=== PATIENT | female | born 1955 | race Caucasian/White ===

== ENCOUNTER → 2017-01-03 | Outpatient (CLI) | payer OTHER ==
[~2017-01-03] VITALS: Ht 157.5 cm; Wt 106.6 kg
[~2017-01-03] MED LIST: FLAX100012 PO; HYDR12.55 PO; LISI30TA4 PO; LR 1,000 ML IV SCH; PRESCAP4 PO; PREV30CA11 PO; PROPOFOL 200 MG/20 ML VIAL As Ordered ONE; VITA400C29 PO
--- NOTE | 2017-01-03 13:13 | ROOR ---
Patient Name: Nguyen Pruett Procedure Date: 01/03/2017 12:55 PM Date of : 1955 Age: 61 Room: [facility] Gender: Female Note Status: Finalized Procedure: Upper GI endoscopy Indications: Abdominal pain in the right upper quadrant, Suspected esophageal reflux Providers: Giovani Rodriguez Jr, MD Referring MD: MARTHA MCDUFFIE NP Requesting Provider: Medicines: Propofol per Anesthesia Complications: No immediate complications. Procedure: Pre-Anesthesia Assessment: - Prior to the procedure, a History and Physical was performed, and patient medications and allergies were reviewed. The patient is competent. The risks and benefits of the procedure and the sedation options and risks were discussed with the patient. All questions were answered and informed consent was obtained. Patient identification and proposed procedure were verified by the physician and the nurse in the pre-procedure area and in the procedure room. Mental Status Examination: alert and oriented. Airway Examination: normal oropharyngeal airway and neck mobility. Respiratory Examination: clear to auscultation. CV Examination: normal. ASA Grade Assessment: II - A patient with mild systemic disease. After reviewing the risks and benefits, the patient was deemed in satisfactory condition to undergo the procedure. The anesthesia plan was to use moderate sedation / analgesia (conscious sedation). Immediately prior to administration of medications, the patient was re-assessed for adequacy to receive sedatives. The heart rate, respiratory rate, oxygen saturations, blood pressure, adequacy of pulmonary ventilation, and response to care were monitored throughout the procedure. The physical status of the patient was re-assessed after the procedure. The Endoscope was introduced through the mouth, and advanced to the second part of duodenum. The upper GI endoscopy was accomplished without difficulty. The patient tolerated the procedure well. Findings: The upper third of the esophagus, middle third of the esophagus and lower third of the esophagus were normal. A medium-sized hiatal hernia was present. The cardia, gastric fundus, gastric antrum, prepyloric region of the stomach and pylorus were normal. Multiple pedunculated polyps with no bleeding and no stigmata of recent bleeding were found on the greater curvature of the stomach. Biopsies were taken with a cold forceps for histology. The duodenal bulb, first portion of the duodenum and second portion of the duodenum were normal. Impression: - Normal upper third of esophagus, middle third of esophagus and lower third of esophagus. - Medium-sized hiatal hernia. - Normal cardia, gastric fundus, antrum, prepyloric region of the stomach and pylorus. - Multiple gastric polyps. Biopsied. - Normal duodenal bulb, first portion of the duodenum and second portion of the duodenum. Recommendation: - Discharge patient to home (ambulatory). - Return to my office in 2 weeks. Giovani Rodriguez MD Giovani Rodriguez Jr, MD 01/03/2017 1:12:28 PM This report has been signed electronically. Number of Addenda: 0 Note Initiated On: 01/03/2017 12:55 PM Estimated Blood Loss: Estimated blood loss: none.
--- NOTE | 2017-01-03 13:27 | ROOR ---
Patient Name: Nguyen Pruett Procedure Date: 01/03/2017 12:55 PM Date of : 1955 Age: 61 Room: [facility] Gender: Female Note Status: Finalized Procedure: Colonoscopy Indications: Abdominal pain in the right lower quadrant Providers: Giovani Rodriguez Jr, MD Referring MD: MARTHA MCDUFFIE NP Requesting Provider: Medicines: Propofol per Anesthesia Complications: No immediate complications. Procedure: Pre-Anesthesia Assessment: - Prior to the procedure, a History and Physical was performed, and patient medications and allergies were reviewed. The patient is competent. The risks and benefits of the procedure and the sedation options and risks were discussed with the patient. All questions were answered and informed consent was obtained. Patient identification and proposed procedure were verified by the physician and the nurse in the pre-procedure area and in the procedure room. Mental Status Examination: alert and oriented. Airway Examination: normal oropharyngeal airway and neck mobility. Respiratory Examination: clear to auscultation. CV Examination: normal. ASA Grade Assessment: II - A patient with mild systemic disease. After reviewing the risks and benefits, the patient was deemed in satisfactory condition to undergo the procedure. The anesthesia plan was to use moderate sedation / analgesia (conscious sedation). Immediately prior to administration of medications, the patient was re-assessed for adequacy to receive sedatives. The heart rate, respiratory rate, oxygen saturations, blood pressure, adequacy of pulmonary ventilation, and response to care were monitored throughout the procedure. The physical status of the patient was re-assessed after the procedure. The Colonoscope was introduced through the anus and advanced to the cecum, identified by appendiceal orifice and ileocecal valve. The colonoscopy was performed without difficulty. The patient tolerated the procedure well. The quality of the bowel preparation was adequate and good. Findings: The perianal exam findings include non-thrombosed internal hemorrhoids, internal hemorrhoids that prolapse with straining, but spontaneously regress to the resting position (Grade II) and internal hemorrhoids that prolapse with straining, but require manual replacement into the anal canal (Grade III). Multiple small and large-mouthed diverticula were found in the sigmoid colon. Scattered small-mouthed diverticula were found in the descending colon, transverse colon and ascending colon. The rectum, recto-sigmoid colon, ascending colon, cecum, appendiceal orifice and ileocecal valve appeared normal. Estimated blood loss: none. Impression: - Non-thrombosed internal hemorrhoids, internal hemorrhoids that prolapse with straining, but spontaneously regress to the resting position (Grade II) and internal hemorrhoids that prolapse with straining, but require manual replacement into the anal canal (Grade III) found on perianal exam. - Diverticulosis in the sigmoid colon. - Diverticulosis in the descending colon, in the transverse colon and in the ascending colon. - The rectum, recto-sigmoid colon, ascending colon, cecum, appendiceal orifice and ileocecal valve are normal. - No specimens collected. Recommendation: - Discharge patient to home (ambulatory). - Repeat colonoscopy in 10 years for screening purposes. Giovani Rodriguez MD Giovani Rodriguez Jr, MD 01/03/2017 1:27:35 PM This report has been signed electronically. Number of Addenda: 0 Note Initiated On: 01/03/2017 12:55 PM Estimated Blood Loss: Estimated blood loss: none.
[2017-01-03 13:56] VITALS: BP 136/66
== END | disposition home or self-care (01) ==
LOC: M OPP 11:32
PROVIDERS: ATTEND Surgery
DX: K64.1 Second degree hemorrhoids (principal); K64.2 Third degree hemorrhoids; K57.30 Diverticulosis of large intestine without perforation or abscess without bleeding; R10.11 Right upper quadrant pain; K44.9 Diaphragmatic hernia without obstruction or gangrene; K31.7 Polyp of stomach and duodenum; I10 Essential (primary) hypertension; M19.90 Unspecified osteoarthritis, unspecified site; Z79.899 Other long term (current) drug therapy; Z88.0 Allergy status to penicillin

== ENCOUNTER → 2019-04-22 | Outpatient (REF) | payer MEDICARE, OTHER ==
[~2019-04-22] MED LIST changes: +LISI-672 PO; -LISI30TA4 PO; -LR 1,000 ML IV SCH; +PREV1CAP PO; -PREV30CA11 PO; -PROPOFOL 200 MG/20 ML VIAL As Ordered ONE; +VITA-110 PO; -VITA400C29 PO
[2019-04-22 17:20] LABS: APPEARANCE, URINE HAZY (CLEAR); BACTERIA, URINE AUTO NEGATIVE (NEGATIVE); BILIRUBIN, URINE AUTO NEGATIVE (NEGATIVE); BLOOD, URINE BLOOD 1+ (NEGATIVE); COLOR, URINE YELLOW (YELLOW); GLUCOSE, URINE (UA) AUTO NEGATIVE (NEGATIVE); KETONE, URINE AUTO NEGATIVE (NEGATIVE); LEUKOCYTE ESTERASE, URINE AUTO 3+ (NEGATIVE); NITRITE, URINE AUTO NEGATIVE (NEGATIVE); PROTEIN, URINE AUTO NEGATIVE (NEGATIVE); RBC, URINE AUTO 17 /HPF (0-3); SPECIFIC GRAVITY URINE AUTO 1.014 (1.002-1.035); SQUAMOUS EPITHELIAL CELL UR AU 1 /HPF (0-6); UROBILINOGEN, URINE AUTO 0.2 mg/dL (0.0-2.0); WBC, URINE AUTO 26 /HPF (0-3)
== END ==
LOC: M LAB REF 15:08
PROVIDERS: ATTEND Physician Assistant
DX: N39.0 Urinary tract infection, site not specified (principal)

== ENCOUNTER 2021-04-12 10:13 | Emergency (ER) | payer MEDICARE, OTHER ==
[~2021-04-12 10:13] MED LIST changes: -LISI-672 PO; +LISI30TA4 PO
[2021-04-12] MEDS ORDERED: LISI30TA4 PO (10:24)
[2021-04-12] MEDS ORDERED: METF10004 PO (10:24)
--- NOTE | 2021-04-12 11:10 | REPVR ---
PROCEDURE INFORMATION: Exam: CT Head Without Contrast Exam date and time: 04/12/2021 10:51 AM Age: 66 years old Clinical indication: Injury or trauma; Fall; Blunt trauma (contusions or hematomas); Additional info: Fall injury TECHNIQUE: Imaging protocol: Computed tomography of the head without contrast. Radiation optimization: All CT scans at this facility use at least one of these dose optimization techniques: automated exposure control; mA and/or kV adjustment per patient size (includes targeted exams where dose is matched to clinical indication); or iterative reconstruction. COMPARISON: No relevant prior studies available. FINDINGS: Brain: No acute intracranial hemorrhage, cerebral edema, or midline shift. Cerebral ventricles: No hydrocephalus. Bones/joints: No acute fracture. Paranasal sinuses: There is no acute sinusitis. Mastoid air cells: Visualized mastoid air cells are well aerated. Orbital cavity: Unremarkable as visualized. Soft tissues: Mild left periorbital soft tissue swelling is present. IMPRESSION: No acute intracranial abnormality. Electronically signed by: Moiz Miles On 04/12/2021 11:10:15 AM
--- NOTE | 2021-04-12 11:13 | REPVR ---
PROCEDURE INFORMATION: Exam: CT Maxillofacial Without Contrast Exam date and time: 04/12/2021 10:51 AM Age: 66 years old Clinical indication: Injury or trauma; Fall; Blunt trauma (contusions or hematomas); Forehead; Additional info: Trauma, left periorbital TECHNIQUE: Imaging protocol: Computed tomography images of the face without contrast. Radiation optimization: All CT scans at this facility use at least one of these dose optimization techniques: automated exposure control; mA and/or kV adjustment per patient size (includes targeted exams where dose is matched to clinical indication); or iterative reconstruction. COMPARISON: No relevant prior studies available. FINDINGS: Orbital cavity: Orbits are normal. Globes are unremarkable. Bones/joints: No acute fracture. Paranasal sinuses: There is a 2.5 cm mucous retention cyst along the floor of the right maxillary sinus. There is no acute sinusitis. Soft tissues: Left periorbital soft tissue swelling is present. IMPRESSION: No acute fracture Electronically signed by: Moiz Miles On 04/12/2021 11:12:42 AM
[2021-04-12] MEDS ORDERED: BOOSTRIX/ADACEL VACCINE (DIPHTH/PERTUSS/ACELL/TETANUS) 0.5ML SYR IM ONE (11:35)
[2021-04-12] MEDS ORDERED: IBUPROFEN 800 MG TAB PO ONE (11:45)
[2021-04-12] MEDS ORDERED: LIDOCAINE W/EPINEPHRINE 1% 20ML VIAL SC ONE (11:50)
[2021-04-12] MEDS ORDERED: NEOSPORIN OINT 0.9 GM PKT TOP ONE (12:40)
[2021-04-12 12:49] VITALS: BP 144/69
== END 2021-04-12 12:58 | disposition home or self-care (01) ==
LOC: M ED 10:13
DX: S01.81XA Laceration without foreign body of other part of head, initial encounter (principal); W19.XXXA Unspecified fall, initial encounter; Y92.009 Unspecified place in unspecified non-institutional (private) residence as the place of occurrence of the external cause; Y93.89 Activity, other specified; Y99.8 Other external cause status

== ENCOUNTER → 2021-08-21 | Outpatient (CLI) | payer MEDICARE, OTHER ==
[~2021-08-21] MED LIST changes: +METF10004 PO
--- NOTE | 2021-08-21 16:04 | REP ---
INDICATION: LOW BACK PAIN. COMPARISON: 12/04/2016 TECHNIQUE: Five views FINDINGS: Since the last examination a grade 1 L4 upon L5 spondylolisthesis has developed. This is seen with new mild to moderate disc space narrowing at L4-5 and L5-S1. Vertebral body height is unchanged. Degenerative facet joint changes are again seen at every level bilaterally and again particularly L3-4 to L5-S1. IMPRESSION: Chronic changes as described above. <Electronically signed by Jordy Wright > 08/21/21 1600
== END ==
LOC: M WUC 14:19
PROVIDERS: ATTEND Registered Nurse
DX: M54.5 Low back pain (principal); M43.16 Spondylolisthesis, lumbar region; M51.37 Other intervertebral disc degeneration, lumbosacral region

== ENCOUNTER → 2021-09-07 | Outpatient (CLI) | payer MEDICARE, OTHER ==
--- NOTE | 2021-09-07 11:16 | REP ---
INDICATION: LT LOWER LEG LUMP CYST VS MASS. COMPARISON: None. TECHNIQUE: Real-time sonographic evaluation of a hard lump over the anterior medial weinberg of the left lower extremity with pain x4 years FINDINGS: No cystic or solid masses are identified over the area interrogated with ultrasound by the technologist. IMPRESSION: No focal sonographic abnormality. This does not obviate further imaging with pre and post gadolinium enhanced MRI. <Electronically signed by Jordy Wrgiht > 09/07/21 [id number]
== END ==
LOC: M RAD 10:26
PROVIDERS: ATTEND Registered Nurse
DX: R22.42 Localized swelling, mass and lump, left lower limb (principal); M79.662 Pain in left lower leg

== ENCOUNTER → 2021-09-21 | Outpatient (CLI) | payer MEDICARE, OTHER ==
[~2021-09-21] MED LIST changes: +PROHANCE 279.3MG/ML 5ML VIAL As Ordered ONE
--- NOTE | 2021-09-21 14:05 | REP ---
INDICATION: HARD LUMP ANTERIOR GONZALEZ. COMPARISON: None. TECHNIQUE: Pre and post contrast 3T MRI of the left lower leg was performed utilizing various sequences. Gadolinium utilized: 10 cc ProHance The technologist placed skin markers on the anterior medial soft tissues 1 proximal and the other distal to a clinically palpable mass. FINDINGS: There is no evidence of a mass or mass effect between the markers placed by the technologist. All adipose tissue suppresses normally on fat suppression sequences. There is no abnormal signal or enhancement seen between the markers placed by the technologist. There is no abnormal fluid in the intracompartmental or extra compartmental imaged soft tissues. The cortical marrow signal seen throughout the tibia and fibula is within normal limits. There is no abnormal periosteal thickening or signal. There is no abnormal periosteal enhancement. IMPRESSION: There is no abnormal identifiable mass or mass effect. There is no abnormal signal or enhancement as described above. MRI findings are within normal limits. <Electronically signed by Jordy Wright > 09/21/21 [id number]
== END ==
LOC: M RAD 11:06
PROVIDERS: ATTEND Registered Nurse
DX: R22.42 Localized swelling, mass and lump, left lower limb (principal)
CPT/HCPCS: 73720; A9576

== ENCOUNTER → 2021-09-22 | Outpatient (CLI) | payer MEDICARE, OTHER ==
[~2021-09-22] MED LIST changes: -PROHANCE 279.3MG/ML 5ML VIAL As Ordered ONE
--- NOTE | 2021-09-22 15:40 | REPMRS ---
Patient History The patient states she had a clinical breast exam in August 2021. No known family history of cancer. Took hormonal contraceptives for 5 years. Patient states no breast complaints today. Patient has signed MRS History Sheet. Digital Woman Screen Mammo: September 22, 2021 - Exam #: [id number] Bilateral CC and MLO view(s) were taken. Technologist: Devorah Catherine, Technologist Prior study comparison: November 13, 2018, bilateral digital mammo screening bilat, performed at [facility]. February 14, 2017, bilateral digital mammo screening bilat, performed at [facility]. November 01, 2015, digital woman screen mammo performed at [facility]. June 03, 2014, bilateral bilat screen digital mammo, performed at [facility] ([facility] FINDINGS: There are scattered fibroglandular densities. Screening. Digital screening (2D) mammography was performed bilaterally in the CC and MLO projections. Additionally, breast tomosynthesis (3D mammography) was performed bilaterally in the CC and MLO projections. Todays exam was compared to the prior exam/exams. By history, the patient has no complaints of a palpable breast abnormality or other significant breast complaints. The breasts are unchanged in size and shape. There are no juwan-soft tissue densities or spiculated masses. There is no internal architectural distortion. There are no suspicious juwan-calcific clusters. Skin thickening or nipple retraction is not present. IMPRESSION: BI-RADS Category 2- Benign Findings. There is no evidence of malignant alteration of the breasts. Followup examination recommended in one year. The Volpara volumetric breast density category is B, there are scattered areas of fibroglandular densities. This mammogram was read with the assistance of [employer],an FDA approved computer aided detection system for mammography. The lifetime Tyrer-Cuzick score is 5.5 % Negative x-ray reports should not delay surgical consultation if a dominant or clinically suspicious mass is present. Not all breast cancers can be identified by mammography. Therefore, we recommend that you continue to perform regular breast self-examination and physical examination and then promptly contact your physician of any concerns or changes. Adenosis and dense breasts may obscure an underlying neoplasm. Assessment: BI-RADS/ACR category 2 mammogram. Benign Findings. Recommendation Routine screening mammogram of both breasts in 1 year. Electronically Signed By: Jordy Wright DO 09/22/21 [id number]
== END ==
LOC: M WHC 14:48
PROVIDERS: ATTEND Registered Nurse
DX: Z12.31 Encounter for screening mammogram for malignant neoplasm of breast (principal); Z13.820 Encounter for screening for osteoporosis

== ENCOUNTER → 2021-10-10 | Outpatient (CLI) | payer MEDICARE, OTHER ==
--- NOTE | 2021-10-10 17:00 | DEXAMM ---
INDICATION: SCREENING FOR OSTEOPOROSIS. COMPARISON: 06/15/2011 as well as other prior exams. TECHNIQUE: Bone density was measured using dual-energy x-ray absorptiometry (DEXA). FINDINGS: AP SPINE L1-L4 BMD 1.102 g/cm2 Young Adult T-Score -0.7 Age Matched Z-Score 1.0. LT FEMUR, TOTAL BMD 0.869 g/cm2 Young Adult T-Score -1.1 Age Matched Z-Score 0.2. LT NECK BMD 0.840 g/cm2 Young Adult T-Score -1.4 Age Matched Z-Score 0.1. RT FEMUR, TOTAL BMD 0.888 g/cm2 Young Adult T-Score -1.0 Age Matched Z-Score 0.4. RT NECK BMD 0.923 g/cm2 Young Adult T-Score -0.8 Age Matched Z-Score 0.7. IMPRESSION: There is normal bone density of the spine. There is low bone density of the left hip. There is normal bone density of the right hip. The density of the spine has decreased 1.7% since the initial exam on 01/14/2006. The density of the spine decreased 0.2% since most recent exam on 06/15/2011. The density of the left hip has decreased 24.1% since initial exam on 01/14/2006. The density of the left hip has decreased 16.4% since most recent exam on 06/15/2011. The density of the right hip has decreased 19.7% since the initial exam on 01/14/2006. The density of the right hip has decreased 12.6% since the most recent exam on 06/15/2011. FOLLOW-UP: Recommendation for the next bone density exam: 2 years. <Electronically signed by Naun Das > 10/10/21 [id number]
== END ==
LOC: M WHC 11:31
PROVIDERS: ATTEND Registered Nurse
DX: Z13.820 Encounter for screening for osteoporosis (principal); Z78.0 Asymptomatic menopausal state

== ENCOUNTER → 2021-11-30 | Outpatient (CLI) | payer MEDICARE, OTHER ==
--- NOTE | 2021-11-30 15:09 | REP ---
INDICATION: CHRONIC KIDNEY DISEASE STAGE 3A COMPARISON: None TECHNIQUE: Real time B-mode ultrasound examination using curved array transducer. FINDINGS: Bladder is normal in appearance without wall thickening or mass lesion. Bilateral ureteral jets are identified. Prevoid bladder measures 9.3 x 3.7 x 5.1 cm (115 cc). Postvoid bladder was completely empty. Postvoid residual: 0% IMPRESSION: 1. Normal bladder ultrasound. <Electronically signed by Rocky Sheehan > 11/30/21 [id number]
--- NOTE | 2021-11-30 15:09 | REP ---
INDICATION: CHRONIC KIDNEY DISEASE STAGE 3A COMPARISON: Abdominal CT dated 03/31/2015 TECHNIQUE: Real time shankar scale ultrasound examination using curved array transducer. FINDINGS: The kidneys are relatively normal in reniform shape and echotexture without hydronephrosis, nephrolithiasis, or obvious renal mass lesion. No perinephric fluid collection. Right kidney measures 9.4 x 4.8 x 3.6 cm and includes few predominately sub cm peripelvic cysts similar to findings on 2015 CT. Left kidney measures 9.7 x 5.0 x 4.8 cm and demonstrates scattered cysts including 1.3 cm and 2.1 cm lower pole cysts similar to findings on 2015 CT. The bladder is normal in appearance and demonstrates bilateral ureteral jets. IMPRESSION: Bilateral renal cysts similar to findings on CT dated 2014. No hydronephrosis or obvious nephrolithiasis <Electronically signed by Rocky Sheehan > 11/30/21 [id number]
== END ==
LOC: M RAD 14:08
PROVIDERS: ATTEND Internal Medicine Nephrology
DX: N18.31 Chronic kidney disease, stage 3a (principal); R33.9 Retention of urine, unspecified; N28.1 Cyst of kidney, acquired

== ENCOUNTER → 2021-12-08 | Outpatient (REF) | payer MEDICARE, OTHER | LOC: M LAB REF 16:18 | PROVIDERS: ATTEND Registered Nurse | DX: M54.50 Low back pain, unspecified (principal) ==

== ENCOUNTER → 2021-12-11 | Outpatient (CLI) | payer MEDICARE, OTHER | LOC: M RAD 10:19 | PROVIDERS: ATTEND Registered Nurse | DX: M54.50 Low back pain, unspecified (principal); M51.37 Other intervertebral disc degeneration, lumbosacral region ==

== ENCOUNTER → 2022-03-28 | Outpatient (REF) | payer MEDICARE, OTHER ==
[2022-03-28 19:14] LABS: HEMOGLOBIN A1c 5.7 %
== END ==
LOC: M LAB REF 16:42
PROVIDERS: ATTEND Registered Nurse
DX: I12.9 Hypertensive chronic kidney disease with stage 1 through stage 4 chronic kidney disease, or unspecified chronic kidney disease (principal); E11.9 Type 2 diabetes mellitus without complications

== ENCOUNTER → 2022-11-15 | Outpatient (CLI) | payer MEDICARE, OTHER | LOC: M WHC 15:03 | PROVIDERS: ATTEND Registered Nurse | DX: Z12.31 Encounter for screening mammogram for malignant neoplasm of breast (principal) ==

== ENCOUNTER → 2024-03-03 | Outpatient (CLI) | payer MEDICARE, OTHER | LOC: M WHC 09:22 | PROVIDERS: ATTEND Registered Nurse | DX: Z12.31 Encounter for screening mammogram for malignant neoplasm of breast (principal) ==

== ENCOUNTER 2024-06-11 10:31 | Emergency (ER) | payer MEDICARE, OTHER ==
[~2024-06-11] VITALS: Ht 157.5 cm; Wt 101.5 kg
[2024-06-11] MEDS ORDERED: SEMA0.257 (10:49)
[2024-06-11] MEDS ORDERED: LANS30CA93 (10:49)
[2024-06-11] MEDS ORDERED: LISI20TA33 (10:49)
[2024-06-11 11:21] LABS: BASO % 0.8 % (0.0-1.0); EOS # 0.2 10^3/uL (0.0-0.5); EOS % 3.4 % (0.0-3.0); HEMATOCRIT 43.3 % (36.0-47.0); LYMPH # 1.8 10^3/uL (1.5-5.0); LYMPH % 34.7 % (24.0-44.0); MEAN CORPUSCULAR HEMOGLOBIN 29.4 pg (27.0-33.0); MEAN CORPUSCULAR HGB CONC 32.3 g/dl (32.0-36.5); MONO # 0.4 10^3/uL (0.0-0.8); MONO % 7.8 % (2.0-8.0); NEUTROPHILS # 2.8 10^3/uL (1.5-8.5); NEUTROPHILS % 53.1 % (36.0-66.0); PLATELET COUNT, AUTOMATED 205 10^3/uL (150-450); RED BLOOD COUNT 4.76 10^6/uL (4.00-5.40); WHITE BLOOD COUNT 5.2 10^3/uL (4.0-10.0)
[2024-06-11 11:31] LABS: INR 0.99; PROTHROMBIN TIME 12.8 SECONDS (12.5-14.5)
[2024-06-11 11:44] LABS: CK-MB VALUE MASS < 1.0 NG/ML (<3.6)
[2024-06-11 11:45] LABS: LIPASE 50 U/L (12-53)
[2024-06-11 11:47] LABS: ALBUMIN 4.1 G/DL (3.2-5.2); ALKALINE PHOSPHATASE 93 U/L (46-116); ALT/SGPT 19 U/L (7.0-40); AST/SGOT 10 U/L (<34); BILIRUBIN,DIRECT 0.2 MG/DL (<0.4); BILIRUBIN,TOTAL 0.6 MG/DL (0.3-1.2); BLOOD UREA NITROGEN 25 MG/DL (9-23); CALCIUM LEVEL 9.6 MG/DL (8.3-10.6); CARBON DIOXIDE LEVEL 29 MMOL/L (20-31); CHLORIDE LEVEL 107 MMOL/L (98-107); CREATININE FOR GFR 1.08 MG/DL (0.55-1.30); GLOMERULAR FILTRATION RATE 53.4 (>39); GLUCOSE, FASTING 97 MG/DL (74-106); POTASSIUM SERUM 4.1 MMOL/L (3.5-5.1); SODIUM LEVEL 142 MMOL/L (136-145); TOTAL PROTEIN 7.4 G/DL (5.7-8.2)
[2024-06-11 11:49] LABS: THYROID STIMULATING HORMONE 4.472 uIU/ML (0.55-4.78)
[2024-06-11 11:50] LABS: CPK CREATINE PHOSPHOKINASE 65 U/L (34-145); MB/CK RELATIVE INDEX 1.53 (< OR =4)
[2024-06-11] MEDS ORDERED: ISOVUE-370 76% 100ML VIAL As Ordered ONE (12:16)
[2024-06-11 12:47] LABS: CK-MB VALUE MASS < 1.0 NG/ML (<3.6)
[2024-06-11 12:51] LABS: CPK CREATINE PHOSPHOKINASE 57 U/L (34-145); MB/CK RELATIVE INDEX 1.75 (< OR =4)
[2024-06-11 14:15] VITALS: BP 130/61; TEMP 97; O2SAT 98
== END 2024-06-11 14:44 | disposition home or self-care (01) ==
LOC: M ED 10:31
DX: R07.9 Chest pain, unspecified (principal); E11.9 Type 2 diabetes mellitus without complications; I10 Essential (primary) hypertension; Z79.85 Long-term (current) use of injectable non-insulin antidiabetic drugs; Z79.899 Other long term (current) drug therapy; Z88.6 Allergy status to analgesic agent; Z88.0 Allergy status to penicillin
CPT/HCPCS: 71045; 71275; 80048; 80076; 82550; 82553; 83690; 84443; 84484; 85025; 85610; 93005; 93041; 94760; 99285; Q9967

== ENCOUNTER → 2024-06-24 | Outpatient (CLI) | payer MEDICARE, OTHER ==
[~2024-06-24] MED LIST changes: +LANS30CA93; +LISI20TA33; +SEMA0.257
== END ==
LOC: M RAD 12:36
PROVIDERS: ATTEND Nurse Practitioner Family
DX: K40.90 Unilateral inguinal hernia, without obstruction or gangrene, not specified as recurrent (principal)

== ENCOUNTER → 2025-05-31 | Outpatient (REF) | payer MEDICARE, OTHER ==
[~2025-05-31] MED LIST changes: +CITRTAB18 PO; +FLAX100016 PO; +LISI20TA33 PO; +METRCRM EXT; +OMEP40CA4 PO; +POTA99CA2 PO; +PRES10CA2 PO; +SEMA0.257 SQ; +THERTAB52 PO; +VITA100093 PO
== END ==
LOC: M LAB REF 11:54
PROVIDERS: ATTEND Nurse Practitioner Family
DX: R31.0 Gross hematuria (principal); N18.31 Chronic kidney disease, stage 3a; E11.22 Type 2 diabetes mellitus with diabetic chronic kidney disease

== ENCOUNTER → 2025-07-05 | Outpatient (CLI) | payer MEDICARE, OTHER | LOC: M WHC 13:27 | PROVIDERS: ATTEND Nurse Practitioner Family | DX: M81.0 Age-related osteoporosis without current pathological fracture (principal); Z12.31 Encounter for screening mammogram for malignant neoplasm of breast; R92.313 Mammographic fatty tissue density, bilateral breasts; M85.89 Other specified disorders of bone density and structure, multiple sites ==

== ENCOUNTER → 2025-08-09 | Outpatient (CLI) | payer MEDICARE, OTHER | LOC: M RAD 10:51 | PROVIDERS: ATTEND Orthopaedic Surgery | DX: M25.562 Pain in left knee (principal) ==